=== PATIENT | male | born 1985 | race Caucasian/White ===

== ENCOUNTER 2017-08-17 18:03 | Emergency (ER) | payer OTHER ==
[~2017-08-17] VITALS: Ht 182.9 cm; Wt 94.9 kg
[2017-08-17] MEDS ORDERED: BUPIVAcaine/PF 2.5 mg/ml (0.25%) 30ml vial IJ ONE (19:05)
[2017-08-17] MEDS ORDERED: IBUP-1986 PO (20:05)
[2017-08-17 20:14] VITALS: BP 155/99
== END 2017-08-17 20:15 | disposition home or self-care (01) ==
LOC: ER 18:04
DX: S63.286A Dislocation of proximal interphalangeal joint of right little finger, initial encounter (principal); W22.8XXA Striking against or struck by other objects, initial encounter; Y93.89 Activity, other specified; Y92.89 Other specified places as the place of occurrence of the external cause; Y99.8 Other external cause status
CPT/HCPCS: 26770; 73110; 73140; 99284; J3490

== ENCOUNTER 2023-06-05 22:55 | Emergency (ER) | payer BC, OTHER ==
[~2023-06-05] VITALS: Ht 182.9 cm; Wt 101.5 kg
[~2023-06-05 22:55] MED LIST: IBUP-1986 PO
[2023-06-06] MEDS ORDERED: proparacaine 0.5% ophthalmic drops 15ml EACHEYE ONE (00:30)
[2023-06-06] MEDS ORDERED: erythromycin ophthalmic ointment 1gm tube LEFTEYE ONE (00:40)
[2023-06-06] MEDS ORDERED: ERYT1OIN6 LEFTEYE (00:41)
[2023-06-06 00:57] VITALS: BP 145/84; PULSE 86; RESP 17; TEMP 98.3; O2SAT 98
== END 2023-06-06 01:08 | disposition home or self-care (01) ==
LOC: ER 22:56
DX: S05.02XA Injury of conjunctiva and corneal abrasion without foreign body, left eye, initial encounter (principal); W22.8XXA Striking against or struck by other objects, initial encounter; Y93.89 Activity, other specified; Y92.89 Other specified places as the place of occurrence of the external cause; Y99.8 Other external cause status
CPT/HCPCS: 99283